=== PATIENT | female | born 1965 | race Caucasian/White ===

== ENCOUNTER → 2017-04-01 | Outpatient (CLI) | payer MEDICAID | LOC: BRMIMAGING 14:54 | PROVIDERS: ATTEND Family Medicine | DX: Z12.31 Encounter for screening mammogram for malignant neoplasm of breast (principal); Z80.3 Family history of malignant neoplasm of breast | CPT/HCPCS: G0202 ==

== ENCOUNTER → 2017-04-09 | Outpatient (CLI) | payer MEDICAID | LOC: BRMIMAGING 09:35 | PROVIDERS: ATTEND Family Medicine | DX: Z12.39 Encounter for other screening for malignant neoplasm of breast (principal); R92.8 Other abnormal and inconclusive findings on diagnostic imaging of breast | CPT/HCPCS: G0206 ==

== ENCOUNTER → 2018-04-13 | Outpatient (CLI) | payer MEDICAID | LOC: BRMIMAGING 10:51 | PROVIDERS: ATTEND Family Medicine | DX: Z12.31 Encounter for screening mammogram for malignant neoplasm of breast (principal) ==

== ENCOUNTER → 2018-06-15 | Outpatient (CLI) | payer MEDICAID | LOC: CIMAGING 18:59 | PROVIDERS: ATTEND Family Medicine | DX: J45.41 Moderate persistent asthma with (acute) exacerbation (principal); R05 Cough | CPT/HCPCS: 71046-PO ==

== ENCOUNTER → 2019-04-28 | Outpatient (CLI) | payer MEDICAID | LOC: BRMIMAGING 09:43 ==